=== PATIENT | female | born 1990 | race Caucasian/White ===

== ENCOUNTER 2016-05-21 13:15 | Emergency (ER) | payer MEDICAID ==
[~2016-05-21] VITALS: Ht 157.5 cm; Wt 51.3 kg
[2016-05-21 13:51] VITALS: BP 127/72
--- NOTE | 2016-05-21 14:31 | NUR ---
Patient to [facility]
--- NOTE | 2016-05-21 14:32 | NUR ---
JAMES BOYD AT BEDSIDE.
--- NOTE | 2016-05-21 14:33 | NUR ---
26/F BIB SELF C/O COUGH AND FEVER X2 DAYS WITH CHEST CONGESTION. LUNG SOUNDS CLR. PT AAOX4 WITH STEADY AMBULATION. STS TAKING THERAFLU AT HOME.
[2016-05-21] MEDS ORDERED: ACETAMIN/CODEINE 120/12MG-5ML 5 ML UDC PO ONE (14:40)
--- NOTE | 2016-05-21 14:40 | NUR ---
PT NASAL SWAB FOR FLU. PT CHANTE WELL.
--- NOTE | 2016-05-21 14:58 | NUR ---
Dr. Bryce luzuting patient.
[2016-05-21] MEDS ORDERED: IBUPROFEN 600 MG TAB PO ONE (15:00)
[2016-05-21 15:49] VITALS: BP 130/77
--- NOTE | 2016-05-21 15:49 | NUR ---
Patient discharged with v/s stable. Written and verbal after care instructions given and explained. Patient alert, oriented and verbalized understanding of instructions. Ambulatory with steady gait. All questions addressed prior to discharge. ID band removed. Patient advised to follow up with PMD. Rx of THERAFLU given. Patient educated on indication of medication including possible reaction and side effects. Opportunity to ask questions provided and answered.
== END 2016-05-21 15:49 | disposition home or self-care (01) ==
LOC: MED 13:15
DX: J11.1 Influenza due to unidentified influenza virus with other respiratory manifestations (principal); F17.200 Nicotine dependence, unspecified, uncomplicated; Z71.6 Tobacco abuse counseling

== ENCOUNTER 2017-09-12 20:43 | Emergency (ER) | payer SELFPAY ==
[~2017-09-12] VITALS: Ht 157.5 cm; Wt 54.4 kg
[2017-09-12 20:48] VITALS: BP 132/75
--- NOTE | 2017-09-12 20:51 | NUR ---
TO BED # 5 AMBULATORY, REPORT GIVEN TO MATI BRISENO
--- NOTE | 2017-09-12 20:55 | NUR ---
ASSUMED CARE OF PT AT THIS TIME. C/O DIFFUSE ABDOMINAL PAIN W/ INTERMITTENT N/V/D X 12 HOURS. AAOX4 WITH EVEN AND STEADY GAIT; PATIENT STATES PAIN OF 8/10; VSS; PATIENT POSITIONED FOR COMFORT; HOB ELEVATED; BEDRAILS UP X2; BED DOWN. ER MD MADE AWARE OF PT STATUS. WILL CONTINUE TO MONITOR.
--- NOTE | 2017-09-12 22:11 | NUR ---
Dr. Vizcaino evaluating patient at bedside.
[2017-09-12] MEDS ORDERED: NACL 0.9% 1,000 ML IV ONE (22:31)
[2017-09-12] MEDS ORDERED: MORPHINE SULFATE 4 MG/ML SYR IVP ONE (22:35)
[2017-09-12] MEDS ORDERED: ONDANSETRON 4 MG/2 ML VIAL IVP ONE (22:35)
[2017-09-12 22:45] LABS: APPEARANCE,URINE SL CLOUDY (CLEAR); BILIRUBIN,URINE NEGATIVE (NEGATIVE); BLOOD, URINE 2+ (NEGATIVE); COLOR,URINE YELLOW (YELLOW); LEUKOCYTE ESTERASE ,URINE NEGATIVE (NEGATIVE); NITRITE, URINE NEGATIVE (NEGATIVE); PH,URINE 6.5 (5.0-9.0); UGLUCOSE NEGATIVE (NEGATIVE)
[2017-09-12 22:46] LABS: BASOPHILS # (AUTO) 0.1 K/uL (0.00-0.22); BASOPHILS % (AUTO) 0.6 % (0.0-2.0); EOSINOPHILS # (AUTO) 0.1 K/uL (0-0.4); EOSINOPHILS % (AUTO) 1.2 % (0.0-4.0); HEMATOCRIT 39.9 % (36-48); HEMOGLOBIN 13.3 g/dL (12.0-16.0); LYMPHOCYTES # (AUTO) 2.2 K/uL (2.5-16.5); LYMPHOCYTES % (AUTO) 26.7 % (20.5-51.1); MEAN CORPUSCULAR HEMOGLOBIN 32 pg (27-31); MEAN CORPUSCULAR HGB CONC 33 g/dL (33-37); MEAN CORPUSCULAR VOLUME 96.9 fL (80-94); MONOCYTES # (AUTO) 0.6 K/uL (0.8-1.0); MONOCYTES % (AUTO) 7.1 % (1.7-9.3); NEUTROPHILS # (AUTO) 5.2 K/uL (1.8-7.7); NEUTROPHILS % (AUTO) 64.4 % (42.2-75.2); PLATELET COUNT (AUTO) 191 K/uL (140-450); RED BLOOD CELL COUNT(AUTO) 4.11 MIL/uL (4.20-5.40); RED CELL DISTRIBUTION WIDTH 12.7 % (11.6-13.7); WHITE BLOOD COUNT (AUTO) 8.1 K/uL (4.8-10.8)
[2017-09-12 23:01] LABS: ALBUMIN 4.2 g/dL (3.4-5.0); ANION GAP 13.3 (8-16); CARBON DIOXIDE 28.6 mmol/L (21-32); CREATININE 0.9 mg/dL (0.6-1.3); POTASSIUM 3.9 mmol/L (3.5-5.1); TOTAL BILIRUBIN 0.9 mg/dL (0.0-1.0)
[2017-09-12 23:05] LABS: RBC,URINE 3-10 (FEW) /HPF (0-5); WBC,URINE 0-5 (RARE) /HPF (0-5)
[2017-09-13 00:20] VITALS: BP 128/74
--- NOTE | 2017-09-13 00:20 | NUR ---
Patient discharged with v/s stable. Written and verbal after care instructions given and explained. Patient alert, oriented and verbalized understanding of instructions. Ambulatory with steady gait. All questions addressed prior to discharge. ID band removed. Patient advised to follow up with PMD. Rx of BENTYL, ZOFRAN, AND FLAGYL given. Patient educated on indication of medication including possible reaction and side effects. Opportunity to ask questions provided and answered.
== END 2017-09-13 00:20 | disposition home or self-care (01) ==
LOC: MED 20:43
DX: R11.10 Vomiting, unspecified (principal); R19.7 Diarrhea, unspecified; R10.30 Lower abdominal pain, unspecified
CPT/HCPCS: 36415; 74176; 80053; 81001; 81025; 83690; 85025; 96361; 96374; 96375; 99285; J2270; J2405; J7030

== ENCOUNTER 2019-05-04 17:43 | Emergency (ER) | payer SELFPAY ==
[~2019-05-04] VITALS: Ht 160 cm; Wt 59.9 kg
[2019-05-04 17:48] VITALS: BP 148/95
--- NOTE | 2019-05-04 18:01 | NUR ---
PT AMBULATED TO BED 12 W/ STEADY GAIT.
--- NOTE | 2019-05-04 18:05 | NUR ---
AT BEDSIDE EXAMINING PT
[2019-05-04] MEDS ORDERED: ALBUTEROL SULFATE/IPRATROPIU 3 ML SOL IH ONE (18:15)
--- NOTE | 2019-05-04 18:20 | NUR ---
29 Y/O FEMALE C/O INTERMITTENT PRESSURE/SQUEEZING/WEIGHT CHEST PAIN/LEFT BREAST AREA PAIN/LEFT SHOULDER PAIN/JAW PAIN X 1 WEEK THAT GOT WORSE LAST NIGHT. PAIN 8/10. PT STATES HAS SOME SOB. LAST NIGHT PT TOOK EXCEDRIN WITH MINIMAL PAIN RELIEF. NO OTC MEDICATIONS TAKEN TODAY. PT DENIES ANY TRAUMA . DENIES N/V/D; SKIN IS PINK/WARM/DRY; AAOX4 WITH EVEN AND STEADY GAIT; PT DENIES ANY FEVER, OR COUGH AT THIS TIME; VSS; PATIENT POSITIONED FOR COMFORT; HOB ELEVATED; BEDRAILS UP X1; BED DOWN AND LOCKED. MEDICAL HX: DENIES NKA
[2019-05-04 19:06] VITALS: BP 140/88
--- NOTE | 2019-05-04 19:06 | NUR ---
Patient discharged with v/s stable. Written and verbal after care instructions given and explained. Patient alert, oriented and verbalized understanding of instructions. Ambulatory with steady gait. All questions addressed prior to discharge. ID band removed. Patient advised to follow up with PMD. Rx of MOTRIN/BENADRYL given. Patient educated on indication of medication including possible reaction and side effects. Opportunity to ask questions provided and answered.
== END 2019-05-04 19:06 | disposition home or self-care (01) ==
LOC: MED 17:43
DX: F41.9 Anxiety disorder, unspecified (principal); M54.9 Dorsalgia, unspecified; M25.512 Pain in left shoulder
CPT/HCPCS: 71045; 81002; 81025; 93005; 94640; 99283; Q0092

== ENCOUNTER 2021-09-18 13:29 | Emergency (ER) | payer OTHER ==
[~2021-09-18] VITALS: Ht 160 cm; Wt 57.3 kg
[2021-09-18 13:50] VITALS: BP 125/79
--- NOTE | 2021-09-18 15:00 | NUR ---
Patient discharged with v/s stable. Written and verbal after care instructions ABOUT COMPLICATED GRIEF given and explained. Patient verbalized understanding. Ambulatory with steady gait. All questions addressed prior to discharge. Advised to follow up with PMD. PT PROVIDED WITH MENTAL HEALTH PACKET AND LIST OF FACILITIES
== END 2021-09-18 15:00 | disposition home or self-care (01) ==
LOC: MED 13:29
DX: F32.9 Major depressive disorder, single episode, unspecified (principal)
CPT/HCPCS: 81025; 99282; 99285